=== PATIENT | female | born 1980 | race Caucasian/White ===

== ENCOUNTER 2018-08-07 19:55 | Emergency (ER) | payer OTHER ==
[2018-08-07] MEDS ORDERED: NA CHLORIDE 0.9% 1,000 ML ONE (23:42)
[2018-08-07] MEDS ORDERED: KETOROLAC 30 MG/ML INJ ONE (23:42)
[2018-08-07] MEDS ORDERED: ONDANSETRON 4 MG/2 ML VIAL ONE (23:42)
[2018-08-08 00:07] LABS: Urine Bacteria >50 /HPF (<20); Urine Culture Reflex Order REFLEXED
[2018-08-08 01:03] LABS: Urine Blood 2+ (NEG); Urine Glucose NEGATIVE (NEG); Urine Protein 2+ (NEG); Urine Specific Gravity 1.025 (1.005-1.030); Urine pH 6.5 (5.0-7.0)
[2018-08-08 02:30] LABS: Absolute Lymphocytes (CBC) 2.9 K/uL (0.7-4.9); Absolute Monocytes 0.7 K/uL (0.1-1.3); Absolute Neutrophil 7.5 K/uL (1.8-8.0); Basophils % 0.3 % (0-1.3); Eosinophils % 1.5 % (0-4.4); Hematocrit 34.1 % (36.0-45.0); Lymphocytes % 25.6 % (15.3-44.8); MCH 29.8 pg (27.0-35.0); MCV 88.2 fL (80-100); MPV 7.5 fL (7.6-11.3); Monocytes % 6.5 % (3.3-12.3); RBC Red Blood Cell Count 3.87 M/uL (3.86-4.86)
[2018-08-08] MEDS ORDERED: MORPHINE 4 MG/ML SYR ONE (02:31)
[2018-08-08 02:45] LABS: ALT/SGPT 17 U/L (12-78); AST/SGOT 17 U/L (15-37); Alkaline Phosphatase 53 U/L (45-117); BUN Blood Urea Nitrogen 10 mg/dL (7-18); Bicarbonate 27 mmol/L (21-32); Bilirubin Direct 0.1 mg/dL (0-0.2); Bilirubin Total 0.3 mg/dL (0.2-1.0); Glucose Level 91 mg/dL (74-106); Lipase 81 U/L (73-393); Potassium 3.4 mmol/L (3.5-5.1); Protein, Total 5.6 g/dL (6.4-8.2); Sodium Level 141 mmol/L (136-145)
--- NOTE | 2018-08-08 03:52 | EDPHYS ---
Physician Documentation [facility] Name: Katelyn Goncalves Age: 38 yrs Sex: Female : 1980 Arrival Date: 08/07/2018 Time: 20:01 Bed 18 Private MD: ED Physician Rolf Farrell HPI: 08/08 01:13 This 38 yrs old Female presents to ER via Ambulatory with complaints of wa Abdominal Pain, Back Pain. 01:13 The patient presents with abdominal pain right lower quadrant. Onset: The wa symptoms/episode began/occurred 3 day(s) ago. The symptoms do not radiate. Associated signs and symptoms: none. The symptoms are described as achy. Modifying factors: The symptoms are alleviated by nothing, the symptoms are aggravated by nothing. Severity of pain: At its worst the pain was moderate in the emergency department the pain is actually worse moderately. The patient has not experienced similar symptoms in the past. The patient has not recently seen a physician. states usually drinks about 4 beers a day. has had more the past few days due to the pain. 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 - Social history:: Smoking status: Patient uses tobacco products, smokes one-half pack cigarettes per day. - Ebola Screening: : No symptoms or risks identified at this time. - Family history:: not pertinent. - Hospitalizations: : No recent hospitalization is reported. ROS: 08/08 01:14 Constitutional: Negative for fever, chills, and weight loss, Eyes: Negative for injury, wa pain, redness, and discharge, ENT: Negative for injury, pain, and discharge, Neck: Negative for injury, pain, and swelling, Cardiovascular: Negative for chest pain, palpitations, and edema, Respiratory: Negative for shortness of breath, cough, wheezing, and pleuritic chest pain, Back: Negative for injury and pain, : Negative for injury, bleeding, discharge, and swelling, MS/Extremity: Negative for injury and deformity, Skin: Negative for injury, rash, and discoloration, Neuro: Negative for headache, weakness, numbness, tingling, and seizure. Abdomen/GI: Positive for abdominal pain, of the right lower quadrant. All other systems are negative. Exam: 01:15 Constitutional: This is a well developed, well nourished patient who is awake, alert, wa and in no acute distress. Head/Face: Normocephalic, atraumatic. Eyes: Pupils equal round and reactive to light, extra-ocular motions intact. Lids and lashes normal. Conjunctiva and sclera are non-icteric and not injected. Cornea within normal limits. Periorbital areas with no swelling, redness, or edema. ENT: Nares patent. No nasal discharge, no septal abnormalities noted. Tympanic membranes are normal and external auditory canals are clear. Oropharynx with no redness, swelling, or masses, exudates, or evidence of obstruction, uvula midline. Mucous membranes moist. Neck: Trachea midline, no thyromegaly or masses palpated, and no cervical lymphadenopathy. Supple, full range of motion without nuchal rigidity, or vertebral point tenderness. No Meningismus. Chest/axilla: Normal chest wall appearance and motion. Nontender with no deformity. No lesions are appreciated. Cardiovascular: Regular rate and rhythm with a normal S1 and S2. No gallops, murmurs, or rubs. Normal PMI, no JVD. No pulse deficits. Respiratory: Lungs have equal breath sounds bilaterally, clear to auscultation and percussion. No rales, rhonchi or wheezes noted. No increased work of breathing, no retractions or nasal flaring. Back: No spinal tenderness. No costovertebral tenderness. Full range of motion. Skin: Warm, dry with normal turgor. Normal color with no rashes, no lesions, and no evidence of cellulitis. MS/ Extremity: Pulses equal, no cyanosis. Neurovascular intact. Full, normal range of motion. Neuro: Awake and alert, GCS 15, oriented to person, place, time, and situation. Cranial nerves II-XII grossly intact. Motor strength 5/5 in all extremities. Sensory grossly intact. Cerebellar exam normal. Normal gait. Psych: Awake, alert, with orientation to person, place and time. Behavior, mood, and affect are within normal limits. 01:15 Abdomen/GI: Inspection: abdomen appears normal, Bowel sounds: normal, Palpation: moderate abdominal tenderness, in the right lower quadrant, no appreciated organomegaly. Vital Signs: 08/07 20:57 BP 123 / 88; Pulse 84; Resp 20; Temp 99; Pulse Ox 100% ; Weight 75.75 kg; Height 5 ft. kr2 6 in. (167.64 cm); Pain 07/17; 22:11 BP 126 / 76; Pulse 70; Resp 16 S; Pulse Ox 100% on R/A; jd3 23:37 BP 125 / 80; Pulse 74; Resp 17 S; Pulse Ox 100% on R/A; jd3 08/08 00:47 BP 120 / 84; Pulse 68; Resp 16 S; Pulse Ox 99% on R/A; jd3 01:55 BP 122 / 83; Pulse 62; Resp 19 S; Pulse Ox 99% on R/A; jd3 03:14 BP 104 / 68; Pulse 62; Resp 16 S; Pulse Ox 99% on R/A; jd3 04:20 BP 99 / 65; Pulse 58; Resp 17 S; Pulse Ox 99% on R/A; jd3 08/07 20:57 Body Mass Index 26.95 (75.75 kg, 167.64 cm) kr2 MDM: 08/07 22:10 Patient medically screened. ut 08/08 01:15 Differential diagnosis: appendicitis, bowel obstruction, non-specific abd pain, Ovarian wa Torsion, Pyelonephritis, Ureterolithiasis, urinary tract infection. 03:49 Data reviewed: vital signs, nurses notes, lab test result(s), radiologic studies. Test wa interpretation: by ED physician or midlevel provider: labs wnl. CT abd/pelvis: 1 mm R mid ureter stone with mild hydronephrosis. Response to treatment: the patient's symptoms have markedly improved after treatment. 08/07 23:06 Order name: Basic Metabolic Panel; Complete Time: 03:49 wa 08/07 23:06 Order name: CBC with Diff; Complete Time: 03:49 ut 08/07 23:06 Order name: Hepatic Function; Complete Time: 03:49 wa 08/07 23:06 Order name: Lipase; Complete Time: 03:49 wa 08/07 23:06 Order name: Urine Microscopic Only; Complete Time: 03:49 ut 08/08 00:13 Order name: Urine Culture EDKY 08/07 23:06 Order name: IV Saline Lock; Complete Time: 01:18 ut 08/07 23:07 Order name: CT Abd/Pelvis - W/Contrast ut 08/08 00:58 Order name: Urine Dipstick--Ancillary (enter results); Complete Time: 03:49 em 08/08 00:58 Order name: Urine --Ancillary (enter results); Complete Time: 03:49 em 08/07 23:06 Order name: Labs collected and sent; Complete Time: 02:31 ut 08/07 23:06 Order name: Urine Dipstick-Ancillary (obtain specimen); Complete Time: 23:44 wa Administered Medications: 01:18 Drug: Zofran 4 mg Route: IVP; Site: right forearm; jd3 02:29 Follow up: Response: No adverse reaction jd3 01:18 Drug: TORadol 30 mg Route: IVP; Site: right forearm; jd3 02:29 Follow up: Response: No adverse reaction jd3 01:18 Drug: NS 0.9% 1000 ml Route: IV; Rate: 1 bolus; Site: right forearm; jd3 02:30 Follow up: Response: No adverse reaction; IV Status: Completed infusion; IV Intake: jd3 1000ml 02:29 Drug: morphine 4 mg Route: IVP; Site: right forearm; jd3 03:00 Follow up: Response: No adverse reaction jd3 Disposition: 08/08/18 03:51 Discharged to Home. Impression: Right ureteral stone. - Condition is Stable. - Discharge Instructions: Kidney Stones, [id number]. - Prescriptions for ketorolac 10 mg Oral tablet - take 1 tablet by ORAL route every 8 hours not to exceed 40 mg in 24hrs; 20 tablet. Zofran 4 mg Oral Tablet - take 1 tablet by ORAL route every 12 hours As needed; 6 tablet. - Medication Reconciliation Form, Thank You Letter, Antibiotic Education, Prescription Opioid Use form. - Follow up: Loreto Ortiz MD; When: 2 - 3 days; Reason: Re-evaluation by your physician. - Problem is new. - Symptoms have improved. - Notes: take pain medications as prescribed. see the urologist as discussed if your symptoms do not improve Signatures: Dispatcher [employer] [facility] Rolf Farrell MD MD wa Davies, Jonathon, RN RN jDenisa Chacon RN RN kr2 Corrections: (The following items were deleted from the chart) 04:21 03:51 08/08/2018 03:51 Discharged to Home. Impression: Right ureteral stone. Condition jd3 is Stable. Forms are Medication Reconciliation Form, Thank You Letter, Antibiotic Education, Prescription Opioid Use. Follow up: Loreto Ortiz; When: 2 - 3 days; Reason: Re-evaluation by your physician. Problem is new. Symptoms have improved. wa
--- NOTE | 2018-08-08 03:52 | ER ---
Nurse's Notes [facility] Name: Katelyn Goncalves Age: 38 yrs Sex: Female : 1980 Arrival Date: 08/07/2018 Time: 20:01 Bed 18 Private MD: Diagnosis: Right ureteral stone Presentation: 08/07 20:54 Presenting complaint: Patient states: I have been having really bad abdominal pain on kr2 the right side that goes around my to my back since Sunday night. I have felt nauseated. Transition of care: patient was not received from another setting of care. Onset of symptoms was August 05, 2018. Risk Assessment: Do you want to hurt yourself or someone else? Patient reports no desire to harm self or others. Initial Sepsis Screen: Does the patient meet any 2 criteria? No. Patient's initial sepsis screen is negative. Care prior to arrival: Medication(s) given: Tramadol at 1700. 20:54 Method Of Arrival: Ambulatory kr2 20:54 Acuity: ERIK 3 kr2 22:12 Initial Sepsis Screen: Does the patient have a suspected source of infection? No. jd3 Patient's initial sepsis screen is negative. Triage Assessment: 20:59 General: Appears in no apparent distress. uncomfortable, well groomed, well developed, kr2 well nourished, Behavior is cooperative, appropriate for age. Pain: Complains of pain in right lower quadrant Pain radiates to posterior aspect of right lateral abdomen and anterior aspect of right lateral abdomen Pain currently is 10 out of 10 on a pain scale. Quality of pain is described as sharp, stabbing, Pain began 2-3 days ago. Is continuous, Alleviated by nothing. Aggravated by increased activity, Noted to be grimacing, guarding. GI: Abdomen is flat, non-distended, GI: Reports nausea, Patient currently denies diarrhea, vomiting. 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 - Social history:: Smoking status: Patient uses tobacco products, smokes one-half pack cigarettes per day. - Ebola Screening: : No symptoms or risks identified at this time. - Family history:: not pertinent. - Hospitalizations: : No recent hospitalization is reported. Screenin:11 Abuse screen: Denies threats or abuse. Nutritional screening: No deficits noted. jd3 Tuberculosis screening: No symptoms or risk factors identified. Fall Risk Ambulatory Aid- None/Bed Rest/Nurse Assist (0 pts). Gait- Normal/Bed Rest/Wheelchair (0 pts) Mental Status- Oriented to own ability (0 pts). Total Kramer Fall Scale indicates No Risk (0-24 pts). Assessment: 22:09 General: Appears in no apparent distress. uncomfortable, Behavior is calm, cooperative, jd3 appropriate for age. Pain: Complains of pain in right upper quadrant and right lower quadrant Pain radiates to posterior aspect of right lateral abdomen and anterior aspect of right lateral abdomen Quality of pain is described as sharp. Neuro: Level of Consciousness is awake, alert, obeys commands, Oriented to person, place, time, situation. Cardiovascular: Capillary refill < 3 seconds Patient's skin is warm and dry. Respiratory: Airway is patent Respiratory effort is even, unlabored, Respiratory pattern is regular, symmetrical, Breath sounds are clear bilaterally. GI: Abdomen is round non-distended, Bowel sounds present X 4 quads. Abd is soft and non tender X 4 quads. Reports nausea. : No signs and/or symptoms were reported regarding the genitourinary system. EENT: No signs and/or symptoms were reported regarding the EENT system. Derm: Skin is intact, Skin is dry, Skin is normal, Skin temperature is warm. Musculoskeletal: Circulation, motion, and sensation intact. Range of motion: intact in all extremities. 23:37 Reassessment: Patient appears in no apparent distress at this time. No changes from jd3 previously documented assessment. Patient and/or family updated on plan of care and expected duration. Pain level reassessed. Patient is alert, oriented x 3, equal unlabored respirations, skin warm/dry/pink. 23:38 Reassessment: ct notified of pt finishing contrast. jd3 08/08 00:47 Reassessment: Patient appears in no apparent distress at this time. No changes from jd3 previously documented assessment. Patient and/or family updated on plan of care and expected duration. Pain level reassessed. Patient is alert, oriented x 3, equal unlabored respirations, skin warm/dry/pink. 01:54 Reassessment: Patient appears in no apparent distress at this time. Patient and/or jd3 family updated on plan of care and expected duration. Pain level reassessed. Patient is alert, oriented x 3, equal unlabored respirations, skin warm/dry/pink. lab at bedside collecting blood. 03:00 Reassessment: Patient appears in no apparent distress at this time. No changes from jd3 previously documented assessment. Patient and/or family updated on plan of care and expected duration. Pain level reassessed. Patient is alert, oriented x 3, equal unlabored respirations, skin warm/dry/pink. 04:18 Reassessment: Patient appears in no apparent distress at this time. Patient and/or jd3 family updated on plan of care and expected duration. Pain level reassessed. Patient is alert, oriented x 3, equal unlabored respirations, skin warm/dry/pink. reported understanding of discharge instructions. Patient states feeling better. Vital Signs: 08/07 20:57 BP 123 / 88; Pulse 84; Resp 20; Temp 99; Pulse Ox 100% ; Weight 75.75 kg; Height 5 ft. kr2 6 in. (167.64 cm); Pain 1010; 22:11 BP 126 / 76; Pulse 70; Resp 16 S; Pulse Ox 100% on R/A; jd3 23:37 BP 125 / 80; Pulse 74; Resp 17 S; Pulse Ox 100% on R/A; jd3 08/08 00:47 BP 120 / 84; Pulse 68; Resp 16 S; Pulse Ox 99% on R/A; jd3 01:55 BP 122 / 83; Pulse 62; Resp 19 S; Pulse Ox 99% on R/A; jd3 03:14 BP 104 / 68; Pulse 62; Resp 16 S; Pulse Ox 99% on R/A; jd3 04:20 BP 99 / 65; Pulse 58; Resp 17 S; Pulse Ox 99% on R/A; jd3 08/07 20:57 Body Mass Index 26.95 (75.75 kg, 167.64 cm) kr2 ED Course: 08/07 20:01 Patient arrived in ED. am2 20:56 Triage completed. kr2 22:09 Cruz, Manan, RN is Primary Nurse. jd3 22:10 Rolf Farrell MD is Attending Physician. wa 22:12 Patient has correct armband on for positive identification. Bed in low position. Call jd3 light in reach. Side rails up X 1. Adult w/ patient. 22:12 Arm band placed on. jd3 23:06 Missed attempt(s): 22 gauge in left antecubital area. Bleeding controlled, band aid jd3 applied, catheter tip intact. 23:44 Urine Microscopic Only Sent. jd3 08/08 01:00 Radiology exam delayed due to IV insertion attempt and/or patient not having sj appropriate IV at this time. 02:00 Inserted saline lock: 22 gauge in right forearm, using aseptic technique. placed by BEN shahid RN. 02:55 CT Abd/Pelvis - W/Contrast In Process Unspecified. EDMS 03:00 CT completed. Patient tolerated procedure well. Patient moved to CT via stretcher. Patient moved back from CT. 03:51 Loreto Ortiz MD is Referral Physician. wa 04:19 No provider procedures requiring assistance completed. Patient transferred, IV remains jd3 in place. intact, bleeding controlled, No redness/swelling at site. Pressure dressing applied. Administered Medications: 01:18 Drug: Zofran 4 mg Route: IVP; Site: right forearm; jd3 02:29 Follow up: Response: No adverse reaction jd3 01:18 Drug: TORadol 30 mg Route: IVP; Site: right forearm; jd3 02:29 Follow up: Response: No adverse reaction jd3 01:18 Drug: NS 0.9% 1000 ml Route: IV; Rate: 1 bolus; Site: right forearm; jd3 02:30 Follow up: Response: No adverse reaction; IV Status: Completed infusion; IV Intake: jd3 1000ml 02:29 Drug: morphine 4 mg Route: IVP; Site: right forearm; jd3 03:00 Follow up: Response: No adverse reaction jd3 Intake: 02:30 IV: 1000ml; Total: 1000ml. jd3 Outcome: 03:51 Discharge ordered by . wa 04:20 Discharged to home ambulatory, with family. jd3 04:20 Condition: stable 04:20 Discharge instructions given to patient, Instructed on discharge instructions, follow up and referral plans. medication usage, Demonstrated understanding of instructions, follow-up care, medications, Prescriptions given X 2. 04:21 Patient left the ED. jd3 Addendum: 08/11/2018 16:06 Addendum: Culture Results: Positive urine culture. Prescription called-in to pharmacy s s of choice. Pt verbalizes understanding importance of taking antibiotics and following up with PCP tomorrow. Signatures: Dispatcher [employer] Aleksandra Ibarra Shelby, RN RN ss Neeru Walsh am2 Rolf Farrell MD MD wa Davies, Jonathon, RN RN jDenisa Chacon RN RN kr2 Corrections: (The following items were deleted from the chart) 08/07 23:45 23:44 Reassessment: Patient appears in no apparent distress at this time. No changes jd3 from previously documented assessment. Patient and/or family updated on plan of care and expected duration. Pain level reassessed. Patient is alert, oriented x 3, equal unlabored respirations, skin warm/dry/pink. jd3
--- NOTE | 2018-08-08 09:33 | RAD REPORT ---
EXAM DESCRIPTION: CTAbdomen Pelvis W Contrast - 08/08/2018 3:57 am CLINICAL HISTORY: Abdominal pain. RLQ PAIN COMPARISON: No comparisons TECHNIQUE: Biphasic CT imaging of the abdomen and pelvis was performed with 100 ml non-ionic IV cont rast. All CT scans are performed using dose optimization technique as appropriate and may include automated exposure control or mA/KV adjustment according to patient size. FINDINGS: The lung bases are clear. The liver demonstrates mild periportal edema. No focal liver mass or biliary dilatation. The spleen, pancreas, adrenal glands are within normal limits. 1 mm stone is present mid right ureter resulting i n mild right hydronephrosis. Nonobstructing 2 mm left renal calculus. No bowel obstruction, free air, free fluid or abscess. Sigmoid diverticulosis is present without dive rticulitis. The appendix is not identified as a discrete structure, however, no secondary findings of appendicitis are identified. No evidence of significant lymphadenopathy. No suspicious bony findings. IMPRESSION: Punctate calculus mid right ureter resulting mild right hydronephrosis. Nonobstructing 2 mm left renal calculus. Mild periportal edema. Correlation with liver function tests is recommended.
== END 2018-08-08 04:21 | disposition home or self-care (01) ==
LOC: ER 19:55
DX: N20.1 Calculus of ureter (principal); F17.210 Nicotine dependence, cigarettes, uncomplicated
CPT/HCPCS: 36415; 74177; 80048; 80076; 81003; 81015; 81025; 83690; 85025; 87077; 87086; 87088; 87186; 96361; 96374; 96375; 99284; J2405; J7030; Q9967